=== PATIENT | female | born 1950 | race Caucasian/White ===

== ENCOUNTER 2023-01-24 08:38 | Day surgery (SDC) | payer MEDICARE, OTHER, SELFPAY ==
[2023-01-20 14:24] VITALS: BMI 33.2
--- NOTE | 2023-01-21 08:25 | MHC.SHP ---
Pre-Procedural Eval Section A Date of Service: 01/21/23 The patient is an INPATIENT: No Changes since office visit: No Cold of Flu in the past 2 weeks, No New Medical Problems, No Changes in Medication and No Patient answered all questions The History & Physical has been completed within 30 days and I have reviewed it.: Yes Section B Chief Complaint: Age-related nuclear cataract, right eye Allergies: Allergies Allergy/AdvReac Type Severity Reaction Status Date / Time atorvastatin [From Lipitor] Allergy Muscle Pain Verified 01/20/23 08:19 codeine Allergy Hypotension Verified 01/20/23 08:19 doxycycline Allergy Shortness Verified 01/20/23 08:19 of Breath levothyroxine sodium Allergy Palpitation Verified 01/20/23 14:00 [From Synthroid] s lisinopril Allergy Cough Verified 01/20/23 08:19 losartan Allergy Swelling Verified 01/20/23 08:19 Penicillins Allergy Rash Verified 01/20/23 08:19 simvastatin Allergy Unknown Verified 01/20/23 08:19 tetracycline Allergy Rash Verified 01/20/23 08:19 Plan Diagnosis/Plan: Unchanged I have reviewed the history and physical and performed a pertinent physical examination on my patient. No changes have occurred unless specified. Time Spent With Patient Time: Total time managing care of this patient today ____ minutes.
[2023-01-24 09:14] VITALS: BP 124/71; PULSE 76; RESP 16; TEMP 36.8; O2SAT 96
[2023-01-24] MEDS: Tetracaine HCl/PF 0.5% Oph Sol 4 ML DROPS 1 DROP EYE-RIGHT (09:18)
[2023-01-24] MEDS: Cyclopentolate 1 % Ophth Sol 2 ML DRPBTL 1 DROP EYE-RIGHT ×3 (09:20→09:37)
[2023-01-24] MEDS: Tropicamide 1 % Ophth Sol 3 ML BTL 1 DROP EYE-RIGHT ×3 (09:21→09:41)
[2023-01-24] MEDS: Ketorolac Tromethamine 0.5% Op 5 ML DROPS 1 DROP EYE-RIGHT ×3 (09:23→09:43)
[2023-01-24] MEDS: Phenylephrine HCL 2.5% Oph SoL 2 ML BOTTLE 1 DROP EYE-RIGHT ×3 (09:25→09:45)
--- NOTE | 2023-01-24 09:25 | P.CONAN_ITS ---
HPI - Anesthesia Eval Consult details Narrative: 72 F for right cataract p CAD s/p stent placement . no chest pain PMFSH Past Medical History Medical History History of stent insertion of renal artery Varicose vein of leg Urinary urgency Diabetes Obese Lipohypertrophy Leg pain Thyroid disease HTN (hypertension) Hypercholesteremia Nephrolithiasis Myocardial infarction Hand, foot and mouth disease (HFMD) Eczema Chronic kidney disease CAD (coronary artery disease) Angina pectoris Abdominal lump Functional capacity: independent ambulation Family History Family history of problems with anesthesia: No Surgical History Surgical History (Updated 01/20/23 @ 08:30 by Marcy Og RN) H/O oral surgery History of heart artery stent History of dilation and curettage H/O colonoscopy History of Problems with Anesthesia: No Social History Social History Are you a primary critical care paramedic to a significant other at home: No Do you presently have visiting nurse or other home services: No Patient Tobacco Use Status: Never used Tobacco Use of substances other than those prescribed or required for medical reasons: No Have you been hit, kicked, punched, or otherwise hurt by someone within the past year? If so, by whom?: No Are you DNR?: No Advance Directives: No Advance Directives Information Provided: Yes Advance Directives on File: No Recently lost weight without trying: No Eating poorly because of decreased appetite: No Nutrition Risks: No Nutritional Risk Patient : No : No Poor oral hygiene: Yes (full dentures and partial lower) Meds Allergies Allergy/AdvReac Type Severity Reaction Status Date / Time atorvastatin [From Lipitor] Allergy Muscle Pain Verified 01/20/23 08:19 codeine Allergy Hypotension Verified 01/20/23 08:19 doxycycline Allergy Shortness Verified 01/20/23 08:19 of Breath levothyroxine sodium Allergy Palpitation Verified 01/20/23 14:00 [From Synthroid] s lisinopril Allergy Cough Verified 01/20/23 08:19 losartan Allergy Swelling Verified 01/20/23 08:19 Penicillins Allergy Rash Verified 01/20/23 08:19 simvastatin Allergy Unknown Verified 01/20/23 08:19 tetracycline Allergy Rash Verified 01/20/23 08:19 Active Medications: Current Medications Cyclopentolate HCl (Cyclopentolate 1 % Ophth Letha 2 Ml Drpbtl) 1 drop EYE-RIGHT Q5M LEEROY Stop: 01/24/23 09:26 Last Admin: 01/24/23 09:20 Dose: 1 drop Ketorolac Tromethamine (Ketorolac Tromethamine 0.5% Op 5 Ml Drops) 1 drop EYE- RIGHT Q5M LEEROY Stop: 01/24/23 09:26 Last Admin: 01/24/23 09:23 Dose: 1 drop Phenylephrine HCl (Phenylephrine Hcl 2.5% Oph Letha 2 Ml Bottle) 1 drop EYE-RIGHT Q5M LEEROY Stop: 01/24/23 09:26 Last Admin: 01/24/23 09:25 Dose: 1 drop Povidone Iodine (Povidone Iodine 5 % Ophth Soln 30 Ml Bottle) 1 appl EYE-RIGHT PREOP PRN PRN Reason: Pre-Op Surgical Implant Prophy Tropicamide (Tropicamide 1 % Ophth Letha 3 Ml Btl) 1 drop EYE-RIGHT Q5M LEEROY Stop: 01/24/23 09:26 Last Admin: 01/24/23 09:21 Dose: 1 drop Home Medications Medication Instructions Recorded Confirmed Last Taken Type amlodipine 2.5 mg tablet 2.5 mg PO DAILY 01/20/23 01/20/23 Unknown History aspirin 81 mg tablet,delayed 243 mg PO DAILY 01/20/23 01/20/23 Unknown History release calcium carbonate 600 mg-vitamin 1 tab PO DAILY 01/20/23 01/20/23 Unknown History D3 5 mcg (200 unit) tablet coenzyme Q10 100 mg capsule 200 mg PO DAILY 01/20/23 01/20/23 Unknown History dulaglutide 3 mg/0.5 mL 3 mg subcut QWEEK 01/20/23 01/20/23 Unknown History subcutaneous pen injector (Trulicity) insulin glargine 100 unit/mL (3 32 unit subcut BEDTIME 01/20/23 01/20/23 Unknown History mL) subcutaneous pen (Lantus Solostar U-100 Insulin) insulin lispro 100 unit/mL subcut 01/20/23 Unknown History subcutaneous pen (Humalog KwikPen (U-100) Insulin) isosorbide mononitrate 60 mg 30 mg PO DAILY 01/20/23 01/20/23 Unknown History tablet,extended release 24 hr levothyroxine 112 mcg tablet 112 mcg PO DAILY 01/20/23 01/20/23 Unknown History losartan 100 mg tablet (Cozaar) 100 mg PO DAILY 01/20/23 01/20/23 Unknown History magnesium oxide 400 mg PO DAILY 01/20/23 01/20/23 Unknown History metformin 500 mg tablet,extended 1,000 mg PO BID 01/20/23 01/20/23 Unknown History release 24 hr metoprolol tartrate 25 mg tablet 25 mg PO BID 01/20/23 01/20/23 Unknown History multivitamin 1 tab PO DAILY 01/20/23 01/20/23 Unknown History omega 3-kwo-haa-fish oil 1,200 mg 1 cap PO DAILY 01/20/23 01/20/23 Unknown History (144 mg-216 mg) capsule (Fish Oil) rosuvastatin 10 mg tablet (Crestor) 10 mg PO DAILY 01/20/23 01/20/23 Unknown History Exam Exam Date and Time: January 24, 2023 0925 Height,Weight and Vital Signs: Height 5 ft Weight 77.111 kg Last Vital Signs Temp 98.2 F 01/24/23 09:14 Pulse 76 01/24/23 09:14 Resp 16 01/24/23 09:14 BP 124/71 01/24/23 09:14 Pulse Ox 96 01/24/23 09:14 O2 Del Method Room Air 01/24/23 09:14 Airway Mallampati Class: III Denture: Upper Partial: Lower Loose/Missing/Broken Teeth: Yes Assessment and Plan Assessment Anesthesia Assessment: Anesthesia Plan Discussed and Chart Reviewed Final Anesthetic Review Family History of Problems with Anesthesia: No History of Problems with Anesthesia: No NPO: Yes ASA Class: III Final Preanesthetic Review: Meds/Allgs Chart Reviewed, Consent Obtained/Reviewed and Anes Risks/Benef Reviewed Patient Risk: Intermediate Procedure Risk: Intermediate Anesthetic Plan Anesthetic Plan: MAC: and Agree w/ Assess. and Plan Disposition: Standard PACU
[2023-01-24 09:26] LABS: Glucose, Whole Blood 132 mg/dL (60-115)
--- NOTE | 2023-01-24 10:22 | HO.PNOPHT ---
Ophthalmology Procedure Procedure Date of Service: 01/24/23 Ophthalmology Viscoelastic: Healchrissy Yarbrought Dual Pack Pro Ophthalmology Lenses: TECMIRZA [id number] (21) Procedure Notes: PREOPERATIVE DIAGNOSIS: Decreased visual acuity right eye secondary to cataract POSTOPERATIVE DIAGNOSIS: Same PROCEDURE: Right cataract extraction with intraocular lens insertion SURGEON: Abdi Guerra M.D. ANESTHESIA: Topical/MAC ESTIMATED BLOOD LOSS: None COMPLICATIONS: None After obtaining informed consent, the patient was brought to the operating room suite and placed in the supine position. After adequate sedation per anesthesia, topical drops of Tetracaine were given to the right eye. The eye was then prepped and draped in the usual sterile fashion. The operating room microscope was then positioned over the operative eye and a lid speculum placed. A paracentesis was created. Viscoelastic was then instilled into the anterior chamber. A three plane incision was then created temporally, utilizing a 2.85 mm keratome. Capsulotomy forceps were then utilized to create a circular tear capsulotomy. Hydrodissection and hydrodelineation were carried out until adequate mobilization of the nucleus occurred. Phacoemulsification was then utilized to remove the dense central nucleus followed by removal of the cortical material utilizing the automated aspiration irrigation unit. Viscoelastic was instilled into the posterior capsular bag followed by placement of a posterior chamber intraocular lens without difficulty. The residual Viscoelastic was then removed utilizing the automated IA machine. The wound was checked and found to be watertight. The patient tolerated the procedure well and the lid speculum was removed. Intracameral injection of Vigamox 0.1 mL followed by a subtenon injection of Kenalog-40 0.2 mL were administered. The patient will be seen in the a.m.
[2023-01-24 10:43] VITALS: BP 130/65; PULSE 73; RESP 18; TEMP 36.7; O2SAT 100
== END 2023-01-24 10:59 | disposition home or self-care (01) ==
PROVIDERS: PCP Internal Medicine; Visit Provider Ophthalmology
PROC: (CPT 66985; principal; 2023-01-24 10:30)
DX: H25.11 Age-related nuclear cataract, right eye (principal); H54.7 Unspecified visual loss; E11.22 Type 2 diabetes mellitus with diabetic chronic kidney disease; I12.9 Hypertensive chronic kidney disease with stage 1 through stage 4 chronic kidney disease, or unspecified chronic kidney disease; N18.1 Chronic kidney disease, stage 1; E78.00 Pure hypercholesterolemia, unspecified; Z79.899 Other long term (current) drug therapy; Z79.4 Long term (current) use of insulin
CPT/HCPCS: 66984; 82947; J2250; J3010; J3301; V2632

== ENCOUNTER 2023-02-07 08:46 | Day surgery (SDC) | payer MEDICARE, OTHER, SELFPAY ==
[2023-01-20 14:29] VITALS: BMI 33.2
--- NOTE | 2023-02-04 07:52 | MHC.SHP ---
Pre-Procedural Eval Section A Date of Service: 02/04/23 The patient is an INPATIENT: No Changes since office visit: No Cold of Flu in the past 2 weeks, No New Medical Problems, No Changes in Medication and No Patient answered all questions The History & Physical has been completed within 30 days and I have reviewed it.: Yes Section B Chief Complaint: Age-related nuclear cataract, left eye Allergies: Allergies Allergy/AdvReac Type Severity Reaction Status Date / Time atorvastatin [From Lipitor] Allergy Muscle Pain Verified 01/20/23 08:19 codeine Allergy Hypotension Verified 01/20/23 08:19 doxycycline Allergy Shortness Verified 01/20/23 08:19 of Breath levothyroxine sodium Allergy Palpitation Verified 01/20/23 14:00 [From Synthroid] s lisinopril Allergy Cough Verified 01/20/23 08:19 losartan Allergy Swelling Verified 01/20/23 08:19 Penicillins Allergy Rash Verified 01/20/23 08:19 simvastatin Allergy Unknown Verified 01/20/23 08:19 tetracycline Allergy Rash Verified 01/20/23 08:19 Plan Diagnosis/Plan: Unchanged I have reviewed the history and physical and performed a pertinent physical examination on my patient. No changes have occurred unless specified. Time Spent With Patient Time: Total time managing care of this patient today ____ minutes.
--- NOTE | 2023-02-04 10:54 | P.CONAN_ITS ---
Documented by User: Kristi Graham NP 02/04/23 10:55 HPI - Anesthesia Eval Consult details Narrative: 72yo F for Left Cataract Extraction IOL Insertion PCP cleared Right eye 01/24/23: Fent 50, Midaz 2 PMFSH Past Medical History Medical History History of stent insertion of renal artery Varicose vein of leg Urinary urgency Diabetes Obese Lipohypertrophy Leg pain Thyroid disease HTN (hypertension) Hypercholesteremia Nephrolithiasis Myocardial infarction Hand, foot and mouth disease (HFMD) Eczema Chronic kidney disease CAD (coronary artery disease) Angina pectoris Abdominal lump Family History Family history of problems with anesthesia: No Surgical History Surgical History H/O oral surgery History of heart artery stent History of dilation and curettage H/O colonoscopy History of Problems with Anesthesia: No Social History Social History Are you a primary health care coordinator to a significant other at home: No Do you presently have visiting nurse or other home services: No Patient Tobacco Use Status: Never used Tobacco Use of substances other than those prescribed or required for medical reasons: No Have you been hit, kicked, punched, or otherwise hurt by someone within the past year? If so, by whom?: No Advance Directives: No Advance Directives Information Provided: Yes Advance Directives on File: No Recently lost weight without trying: No Nutrition Risks: No Nutritional Risk Patient : No : No Poor oral hygiene: Yes (full upper and partial lower) Meds Allergies Allergy/AdvReac Type Severity Reaction Status Date / Time atorvastatin [From Lipitor] Allergy Muscle Pain Verified 01/20/23 08:19 codeine Allergy Hypotension Verified 01/20/23 08:19 doxycycline Allergy Shortness Verified 01/20/23 08:19 of Breath levothyroxine sodium Allergy Palpitation Verified 01/20/23 14:00 [From Synthroid] s lisinopril Allergy Cough Verified 01/20/23 08:19 losartan Allergy Swelling Verified 01/20/23 08:19 Penicillins Allergy Rash Verified 01/20/23 08:19 simvastatin Allergy Unknown Verified 01/20/23 08:19 tetracycline Allergy Rash Verified 01/20/23 08:19 Home Medications Medication Instructions Recorded Confirmed Last Taken Type amlodipine 2.5 mg tablet 2.5 mg PO DAILY 01/20/23 01/20/23 Unknown History aspirin 81 mg tablet,delayed 243 mg PO DAILY 01/20/23 01/20/23 Unknown History release calcium carbonate 600 mg-vitamin 1 tab PO DAILY 01/20/23 01/20/23 Unknown History D3 5 mcg (200 unit) tablet coenzyme Q10 100 mg capsule 200 mg PO DAILY 01/20/23 01/20/23 Unknown History dulaglutide 3 mg/0.5 mL 3 mg subcut QWEEK 01/20/23 01/20/23 Unknown History subcutaneous pen injector (Trulicity) insulin glargine 100 unit/mL (3 32 unit subcut BEDTIME 01/20/23 01/20/23 Unknown History mL) subcutaneous pen (Lantus Solostar U-100 Insulin) insulin lispro 100 unit/mL subcut 01/20/23 Unknown History subcutaneous pen (Humalog KwikPen (U-100) Insulin) isosorbide mononitrate 60 mg 30 mg PO DAILY 01/20/23 01/20/23 Unknown History tablet,extended release 24 hr levothyroxine 112 mcg tablet 112 mcg PO DAILY 01/20/23 01/20/23 Unknown History losartan 100 mg tablet (Cozaar) 100 mg PO DAILY 01/20/23 01/20/23 Unknown History magnesium oxide 400 mg PO DAILY 01/20/23 01/20/23 Unknown History metformin 500 mg tablet,extended 1,000 mg PO BID 01/20/23 01/20/23 Unknown History release 24 hr metoprolol tartrate 25 mg tablet 25 mg PO BID 01/20/23 01/20/23 Unknown History multivitamin 1 tab PO DAILY 01/20/23 01/20/23 Unknown History omega 5-lhs-smg-fish oil 1,200 mg 1 cap PO DAILY 01/20/23 01/20/23 Unknown History (144 mg-216 mg) capsule (Fish Oil) rosuvastatin 10 mg tablet (Crestor) 10 mg PO DAILY 01/20/23 01/20/23 Unknown History Exam Exam Date and Time: February 04, 2023 1054 Height,Weight and Vital Signs: Height 5 ft Weight 77.111 kg Assessment and Plan Assessment Anesthesia Assessment: Chart Reviewed Final Anesthetic Review Family History of Problems with Anesthesia: No History of Problems with Anesthesia: No Documented by User: Macho Vela MD 02/07/23 09:21 PMFSH Past Medical History Medical History History of stent insertion of renal artery Varicose vein of leg Urinary urgency Diabetes Obese Lipohypertrophy Leg pain Thyroid disease HTN (hypertension) Hypercholesteremia Nephrolithiasis Myocardial infarction Hand, foot and mouth disease (HFMD) Eczema Chronic kidney disease CAD (coronary artery disease) Angina pectoris Abdominal lump Surgical History Surgical History H/O oral surgery History of heart artery stent History of dilation and curettage H/O colonoscopy Social History Social History Are you a primary health care coordinator to a significant other at home: No Do you presently have visiting nurse or other home services: No Patient Tobacco Use Status: Never used Tobacco Use of substances other than those prescribed or required for medical reasons: No Have you been hit, kicked, punched, or otherwise hurt by someone within the past year? If so, by whom?: No Advance Directives: No Advance Directives Information Provided: Yes Advance Directives on File: No Recently lost weight without trying: No Nutrition Risks: No Nutritional Risk Patient : No : No Poor oral hygiene: Yes (full upper and partial lower) Meds Allergies Allergy/AdvReac Type Severity Reaction Status Date / Time atorvastatin [From Lipitor] Allergy Muscle Pain Verified 01/20/23 08:19 codeine Allergy Hypotension Verified 01/20/23 08:19 doxycycline Allergy Shortness Verified 01/20/23 08:19 of Breath levothyroxine sodium Allergy Palpitation Verified 01/20/23 14:00 [From Synthroid] s lisinopril Allergy Cough Verified 01/20/23 08:19 losartan Allergy Swelling Verified 01/20/23 08:19 Penicillins Allergy Rash Verified 01/20/23 08:19 simvastatin Allergy Unknown Verified 01/20/23 08:19 tetracycline Allergy Rash Verified 01/20/23 08:19 Home Medications Medication Instructions Recorded Confirmed Last Taken Type amlodipine 2.5 mg tablet 2.5 mg PO DAILY 01/20/23 01/20/23 Unknown History aspirin 81 mg tablet,delayed 243 mg PO DAILY 01/20/23 01/20/23 Unknown History release calcium carbonate 600 mg-vitamin 1 tab PO DAILY 01/20/23 01/20/23 Unknown History D3 5 mcg (200 unit) tablet coenzyme Q10 100 mg capsule 200 mg PO DAILY 01/20/23 01/20/23 Unknown History dulaglutide 3 mg/0.5 mL 3 mg subcut QWEEK 01/20/23 01/20/23 Unknown History subcutaneous pen injector (Trulicity) insulin glargine 100 unit/mL (3 32 unit subcut BEDTIME 01/20/23 01/20/23 Unknown History mL) subcutaneous pen (Lantus Solostar U-100 Insulin) insulin lispro 100 unit/mL subcut 01/20/23 Unknown History subcutaneous pen (Humalog KwikPen (U-100) Insulin) isosorbide mononitrate 60 mg 30 mg PO DAILY 01/20/23 01/20/23 Unknown History tablet,extended release 24 hr levothyroxine 112 mcg tablet 112 mcg PO DAILY 01/20/23 01/20/23 Unknown History losartan 100 mg tablet (Cozaar) 100 mg PO DAILY 01/20/23 01/20/23 Unknown History magnesium oxide 400 mg PO DAILY 01/20/23 01/20/23 Unknown History metformin 500 mg tablet,extended 1,000 mg PO BID 01/20/23 01/20/23 Unknown History release 24 hr metoprolol tartrate 25 mg tablet 25 mg PO BID 01/20/23 01/20/23 Unknown History multivitamin 1 tab PO DAILY 01/20/23 01/20/23 Unknown History omega 1-jfj-wbu-fish oil 1,200 mg 1 cap PO DAILY 01/20/23 01/20/23 Unknown History (144 mg-216 mg) capsule (Fish Oil) rosuvastatin 10 mg tablet (Crestor) 10 mg PO DAILY 01/20/23 01/20/23 Unknown History Exam Airway Mallampati Class: II TM Dist: >3cm Neck ROM: Full Denture: Upper Partial: Lower Loose/Missing/Broken Teeth: Yes Heart: [id number] Lungs: cta b/l Assessment and Plan Assessment Anesthesia Assessment: Anesthesia Plan Discussed Final Anesthetic Review NPO: Yes ASA Class: III Final Preanesthetic Review: No Changes in Pt Med Stat, Meds/Allgs Chart Reviewed, Consent Obtained/Reviewed and Anes Risks/Benef Reviewed Patient Risk: Intermediate Procedure Risk: Intermediate Assessment/Block/Sedation in SS: Assess/Block/Sedation-SS Anesthetic Plan Anesthetic Plan: MAC: and Agree w/ Assess. and Plan Disposition: Standard PACU
[2023-02-07] MEDS: Lactated Ringers 500 ML 50 ML IV (09:43)
[2023-02-07] MEDS: Tetracaine HCl/PF 0.5% Oph Sol 4 ML DROPS 1 DROP EYE-LEFT (09:44)
[2023-02-07] MEDS: Phenylephrine HCL 2.5% Oph SoL 2 ML BOTTLE 1 DROP EYE-LEFT ×3 (09:44→09:55)
[2023-02-07] MEDS: Ketorolac Tromethamine 0.5% Op 5 ML DROPS 1 DROP EYE-LEFT ×3 (09:45→09:55)
[2023-02-07] MEDS: Tropicamide 1 % Ophth Sol 3 ML BTL 1 DROP EYE-LEFT ×3 (09:45→09:55)
[2023-02-07] MEDS: Cyclopentolate 1 % Ophth Sol 2 ML DRPBTL 1 DROP EYE-LEFT ×3 (09:45→09:56)
[2023-02-07 09:58] VITALS: BP 137/71; PULSE 71; RESP 18; TEMP 36.6; O2SAT 97
[2023-02-07 10:03] LABS: Glucose, Whole Blood 150 mg/dL (60-115)
--- NOTE | 2023-02-07 10:38 | HO.PNOPHT ---
Ophthalmology Procedure Procedure Date of Service: 02/07/23 Ophthalmology Viscoelastic: Healon Duet Dual Pack Pro Ophthalmology Lenses: TECNIS [id number] (20.5) Procedure Notes: PREOPERATIVE DIAGNOSIS: Decreased visual acuity left eye secondary to cataract POSTOPERATIVE DIAGNOSIS: Same PROCEDURE: Left cataract extraction with intraocular lens insertion SURGEON: Abdi Guerra M.D. ANESTHESIA: Topical/MAC ESTIMATED BLOOD LOSS: None COMPLICATIONS: None After obtaining informed consent, the patient was brought to the operation room suite and placed in the supine position. After adequate sedation per anesthesia, topical drops of Tetracaine were given to the left eye. The eye was then prepped and draped in the usual sterile fashion. The operating room microscope was then positioned over the operative eye and a lid speculum placed. A paracentesis was created. Viscoelastic was then instilled into the anterior chamber. A three plane incision was then created temporally, utilizing a 2.85 mm keratome. Capsulotomy forceps were then utilized to create a circular tear capsulotomy. Hydrodissection and hydrodelineation were carried out until adequate mobilization of the nucleus occurred. Phacoemulsification was then utilized to remove the dense central nucleus followed by removal of the cortical material utilizing the automated aspiration irrigation unit. Viscoat elastic was instilled into the posterior capsular bag followed by placement of a posterior chamber intraocular lens without difficulty. The residual Viscoat elastic was then removed utilizing the automated IA machine. The wound was check and found to be watertight. The patient tolerated the procedure well and the lid speculum was removed. Intracameral injection of Vigamox 0.1 mL followed by a subtenon injection of Kenalog-40 0.2 mL were administered. The patient will be seen in the a.m.
[2023-02-07 11:03] VITALS: BP 147/72; PULSE 77; RESP 16; TEMP 36.6; O2SAT 95
== END 2023-02-07 11:16 | disposition home or self-care (01) ==
PROVIDERS: PCP Internal Medicine; Visit Provider Ophthalmology
PROC: (CPT 66985; principal; 2023-02-07 10:50)
DX: H25.12 Age-related nuclear cataract, left eye (principal); H54.7 Unspecified visual loss; H18.413 Arcus senilis, bilateral; I10 Essential (primary) hypertension; I25.2 Old myocardial infarction; E11.9 Type 2 diabetes mellitus without complications; E07.9 Disorder of thyroid, unspecified; Z79.4 Long term (current) use of insulin; Z79.899 Other long term (current) drug therapy; Z88.0 Allergy status to penicillin; Z88.1 Allergy status to other antibiotic agents; Z88.5 Allergy status to narcotic agent; Z88.8 Allergy status to other drugs, medicaments and biological substances
CPT/HCPCS: 66984; 82947; J2250; J3010; J3301; V2632